=== PATIENT | female | born 1970 | race Caucasian/White ===

== ENCOUNTER 2024-12-09 08:21 | Outpatient (CLI) | payer OTHER, SELFPAY | END 2024-12-09 08:22 | disposition home or self-care (01) | LOC: NFLDREF 12-12 04:56 | PROVIDERS: PCP Family Medicine; Referring Provider Family Medicine; Visit Provider Physician Assistant Medical | DX: E78.5 Hyperlipidemia, unspecified (principal); E07.89 Other specified disorders of thyroid; Z11.3 Encounter for screening for infections with a predominantly sexual mode of transmission; Z11.59 Encounter for screening for other viral diseases | CPT/HCPCS: 80053; 80061; 84443; 86703; 86803 ==

== ENCOUNTER 2024-12-16 16:53 | Outpatient (CLI) | payer OTHER, SELFPAY ==
[2024-12-16 23:49] LABS: Chlamydia DNA Amplified* NOT DETECTED (No Detected); GC DNA Amplified* NOT DETECTED (No Detected)
[2024-12-18 19:19] LABS: HPV Source Cervix; HPV, High Risk by TMA Not Detected
== END 2024-12-16 16:54 | disposition home or self-care (01) ==
PROVIDERS: PCP Physician Assistant Medical; Visit Provider Physician Assistant Medical
DX: Z11.3 Encounter for screening for infections with a predominantly sexual mode of transmission (principal); Z11.51 Encounter for screening for human papillomavirus (HPV); Z12.4 Encounter for screening for malignant neoplasm of cervix
CPT/HCPCS: 87491; 87591; 87624; 87625; 88141; 88142

== ENCOUNTER 2025-01-18 07:06 | Outpatient (CLI) | payer OTHER, SELFPAY ==
--- NOTE | 2025-01-18 07:15 | CRLHL7_ITS ---
For Patients: As a result of the Century Cures Act, medical imaging exams and procedure reports are released immediately into your electronic medical record. You may view this report before your referring provider. If you have questions, please contact your health care provider. INDICATION: other specified disorders of thyroid COMPARISON: none TECHNIQUE: Hughes scale and color Doppler images were acquired of the thyroid gland. FINDINGS: The thyroid gland demonstrates normal uniform echogenicity and has a smooth outer contour. The right lobe measures 4.1 x 1.2 x 1.5 cm and the left lobe measures 4.1 x 1.1 x 1.3 cm in size. Isthmus measures 3 millimeters. There are no suspicious masses or nodules. The color Doppler images demonstrate normal vascularity. There is no evidence of cervical lymphadenopathy or parathyroid mass. IMPRESSION: Normal thyroid ultrasound. Dictated by Devin Pardo MD @ 01/18/2025 10:16:59 AM (Electronically Signed)
== END 2025-01-18 07:07 | disposition home or self-care (01) ==
LOC: US 07:06
PROVIDERS: PCP Physician Assistant Medical; Visit Provider Physician Assistant Medical
DX: R22.0 Localized swelling, mass and lump, head (principal); E07.89 Other specified disorders of thyroid
CPT/HCPCS: 76536

== ENCOUNTER 2025-01-28 12:40 | Emergency (ER) | payer OTHER, SELFPAY ==
--- OUTSIDE RECORDS SUMMARY | 2025-01-28 12:43 | XMS_ITS | Continuity of Care Document ---
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 We reviewed the findings of her CT. Findings include RADIOGRAPHIC IMPRESSIONS: 1. 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 2. Early degenerative joint disease of the right temporomandibular joint. 3. Apical periodontitis of tooth #19. 4. 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 There were no other abnormalities noted. For complete details regarding her imaging see the radiology report in their EHR. Diagnosis and treatment options were reviewed at today's appointment. A copy of the CT review was provided to the patient. Today I had a long discussion regarding the CT findings and clinical presentation of bite changes and Grace presents in a flare with the jaw exercises. Symptoms present as left sided preauricular and masseter pain presenting as dull throbbing and occasional burning pain. My first differential is myofascial pain with referral. My second differential is neuropathic pain. I suggested she monitor for constitutional symptoms of fever, rash, intraoral vesicles etc for possible shingles considering this is a prodrome presentation. We discussed medication options including trial of muscle relaxant. Today a prescription for cyclobenzaprine 5 mg qhs, was provided to the patient. The risks and benefits associated with the prescribed medication was discussed with the patient today. Patient was asked to discontinue medication intake and return to clinic if significant side effects were noted from the medication. I also discussed options between steroid medication vs NSAIDs to reduce the acute discomfort. Due to upcoming travel and possible adverse effects, Grace would like to defer steroids. Today a prescription for Naproxen 500 mg BID, was provided to the patient. The risks and benefits associated with the prescribed medication was discussed with the patient today. Patient was asked to discontinue medication intake and return to clinic if significant side effects were noted from the medication. I suggested she monitor patterns and triggers of the pain. It may be reasonable to consider Gabapentin in follow up. I recommended continued treatment with physical therapy. Grace would like to defer this. I recommended fabrication of an intraoral appliance. No impressions were obtained today. Grace will consider this after checking insurance coverage. I suggested completion of INvisalign treatment as recommended. We discussed 2 phase treatment approach with arthritis of the TM joints. Phase 1 - stabilize the jaw joints with home care, mobilization and use of an intraoral appliance to improve and maintain joint mechanics. Phase 2 - consider occlusal rehabilitation if needed to improve bite. I answered questions on terminal supervisor prognosis and discussed the need for possible follow up imaging to establish joint changes. Grace reports understanding and will reach me if symptoms progress. I suggested that (s)he return for follow-up care in 4-6 weeks. History today was obtained from the patient. The patient has 5+ diagnoses they would like to address. Their symptoms are flared. This case is moderate complexity because of multiple diagnoses with chronic symptoms. Data reviewed included previous imaging - TMJ CT. Discussion with treatment team members after visit was necessary. Risk of complications include disease progression were discussed. Today time spent may have included a review of past records, history taking, review of diagnoses, contributing factors, treatment plan, diagnostic testing, prognosis, expectations, risks and complications of treatment/no treatment, discussions with other providers and completing documentation was 45. Not available 01/06/2025 08:05:03 Plan of Treatment Reminders Order Date Submit Date Provider Last Modified By Organization Details Last Modified Time Details Appointments None recorded. Lab None recorded. Referral None recorded. Procedures None recorded. Surgeries None recorded. Imaging None recorded. Medication Orders cyclobenzap rine 5 mg tablet 2024 025 BRANDY SHIN [id number] [employer], [address] , [place], [address], 08:11:33 naproxen 500 mg tablet 2024 025 BRANDY SHIN [id number] [employer], [address] , [place], [address], 17:59:54 diclofenac 1 % topical gel 2024 025 arun1 KIP [id number] [employer], [address] [facility] [address] [place], [address], 08:11:31 Patient TargetsNo targets recorded. Patient InstructionsNo instructions recorded. Reason for Referral None Reported. Results Created Date Observation Date Name Description Value Unit Range Abnormal Flag Note LastModifiedBy Organization Detail LastModifiedTime 01/05/2012/21/2024 CT, tempo ral bone, w/o contr ast No observ ation record ed. [address], [place], [address], 01/04/2025 12:16:56 Result Notes None recorded. 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 005599880821 30115 Active 2024 Sara Nowak DPT [address], [place], [address], [facility] 09:55:59 Hypertrop hy of muscles of masticati on 756185170 Active 2024 Sara Nowak DPT [address], [place], [address], [facility] 09:56:06 Limited opening of mandible 423165045 Active 2024 Sara Nowak DPT [address], [place], [address], [facility] 5 09:56:17 Jaw pain 083720576 Active 2024 Sara Nowak DPT [address], [place], [address], [place] [facility] 5 09:56:25 Myofascia l pain 452419257 Active 2024 Mastic[place] ry and cervical muscles DONALD RAGSDALE BDS,MS [address], [place], [address], [facility] 5 15:29:19 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 47808150 Active 2024 Left TMJ disc displacem ent without reduction with limited opening Rule out L TMJ DJD DONALD RAGSDALE BDS,MS [address], [place], [address], [facility] 5 15:29:11 Right posterior open bite 294178103 Active 2024 DONALD RAGSDALE BDS,MS [address], [place], [address], [facility] 5 15:27:39 Sleep related bruxism 576955553 Active 2024 DONALD RAGSDALE BDS,MS [address], [place], [address], [facility] 5 15:27:51 Referred otalgia of right ear 264821295250 9100 Active 2024 Light articulat ing paper contacts - likely L TMJ DJD DONALD RAGSDALE BDS,MS [address], [place], [address], [facility] 5 15:29:50 Pain of left temporoma ndibular joint 877309148252 42322 Active 2024 DONALD RAGSDALE, BRADS,MS [address], [place], [address], [facility] 5 17:22:56 Bilateral temporoma ndibular joint arthritis 328595232379 Active 2024 BRAD RAYMONDS,MS [address], [place], [address], [facility] 5 08:05:14 Problem Notes None recorded. Procedures Surgical History Date Name Laterality Status Provider Name and Address Organization Details Recorded Time 12/22/19 CT TMJ completed Winnie Knox [facility] 12/21/2024 16:19:32 12/08/19 25 33200: Therapeutic Exercise completed Sara Nowak DPT [address], [place], [address], [facility] 12/08/2024 18:20:16 12/08/19 25 02809: Neuromuscular Re-Education completed Sara Nowak DPT [address], [place], [address], [facility] 12/08/2024 18:20:18 12/08/19 25 92469: Manual Therapy completed Sara Nowak DPT [address], [place], [address], [facility] 12/08/2024 18:20:15 11/25/19 25 63783 - PT Eval Moderate Complexity completed Sara Nowak DPT [address], [place], [address], [facility] 11/24/2024 19:11:31 11/25/19 25 [address]7928: Self Care/Home Management Training completed Sara Nowak DPT [address], [place], [address], [facility] 11/25/2024 09:51:21 11/25/19 89079: Therapeutic Exercise completed Sara She, DPT [address], [place], [address], [facility] 11/25/2024 09:50:57 11/25/19 21109: Manual Therapy completed Sarasridhar Nowak, DPT [address], [place], [address], [facility] 11/25/2024 09:51:16 [place] Teeth Extraction completed Elizabeth Sands [facility] 11/24/2024 16:08:29 Imaging Results None recorded. Procedure Notes None recorded. Medical Equipment None Reported. Allergies No known drug allergies Medications Name Sig Start Date Stop Date Status Note LastModified by Organization Details LastModified Time methylpredn isolone 4 mg tablets in a dose pack TAKE 6 TABLETS ON DAY 1 DIRECTED ON PACKAGE AND DECREASE BY 1 TAB EACH DAY FOR A TOTAL OF 6 DAYS active Not Available Not Available No t Available naproxen 500 mg tablet TAKE 1 TABLET BY MOUTH TWICE A DAY WITH MEAL(S) FOR 15 DAYS, FOR JAW AND EAR PAIN.. 01/18 completed Not Available Not Available Not Available cyclobenzap rine 5 mg tablet TAKE 1 TABLET BY MOUTH EVERY DAY AT BEDTIME FOR 30 DAYS, FOR JAW PAIN. active Not Available Not Available No t Available multivitami n active Not Available Not Available Not Available diclofenac 1 % topical gel APPLY 2 GRAMS TO THE AFFECTED AREA(S) BY TOPICAL ROUTE 4 TIMES PER DAY 2024 active Not Available Not Available Not Avai lable Vitals Date Recorded Body height Heart rate Systolic blood pressure Diastolic blood pressure Provider Name and Address Organization Details Last Updated DateTime 01/05/2025 162.56 cm 74 /min 118 mm[Hg] 76 mm[Hg] Ankit Hills [facility] 01/05/2025 17:00:49 Social History Question Answer Notes LastModified by Organizat ion Details LastModified Time Tobacco Smoking Status Never Smoker Elizabeth riley [facility] 11/24/2024 16:05:17 What Is Your Level Of Alcohol Consumption? None Information not available 11/24/2024 What Is Your Level Of Caffeine Consumption? Moderate Information not available 11/24/2024 Are You Currently Employed? Yes Information not available 11/24/2024 What Type Of Diet Are You Following? REGULAR Information not available 11/24/2024 What Is The Highest Grade Or Level Of School You Have Completed Or The Highest Degree You Have Received? [id number] Information not available 11/24/2024 Who Is Your Employer? 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 5 Information not available 11/24/2024 What Is Your Relationship Status? Information not available 11/24/2024 Do You Use Any Illicit Or Recreational Drugs? No Information not available 11/24/2024 Do You Or Have You Ever Used Any Other Forms Of Tobacco Or Nicotine? No Information not available 11/24/2024 Sex: Female Functional Status Question Answer Note LastModified by Organization D etails LastModified Time What is your exercise level? None Information not available 11/24/2024 Mental Status None recorded. Family History Relationship Description Onset Age of this Age Resolved Age Notes LastModified by Organization Details LastModified Time Father Hypertensive disorder ssylvers Not available 2024 16:07:19 Father Myocardial infarction ssylvers Not available 11/24 16:07:33 Paternal Grandmother Alzheimer's disease ssylvers Not available 2024 16:08:02 Medical History Condition Response Coronary Artery Disease N Gout N Other N Chronic fatigue syndrome N Premenstrual syndrome (PMS) N Head Trauma/Injury N Irritable bowel syndrome N Thyroid Problems N Depression N COPD N Pancreatic disease N Heart Attack (MA) N Stomach Ulcers N Anxiety Disorder N Back pain N Diabetes N Bleeding Disorder N Arthritis N Sjogren's syndrome N Tuberculosis N History of radiation therapy N Cancer N Stroke N Asthma N Physical or sexual abuse N Eating disorder N Substance Abuse N Psoriasis N Back Injury N High Cholesterol N History of chemotherapy N Hepatitis N Liver Disease N Heart Disease N Headaches N Fibromyalgia N Hypertension N Osteoporosis N Kidney Disease N Gynecological HistoryNo gynecological history recorded. 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 4849584727 6186853 M26.632 Articular disc disorder of temporomandibular joint 70820183 M26.632 Hypertroph y of muscles of mastication 859127118 M62.89 Jaw pain 393975268 R68.8 4 Limited op ening of mandible 022185385 M26.52 Myofascial pain 29130533 9 M79.11 M79.12 Referred o talgia of right ear 9943168385 136273 H92.01 Right post erior open bite 344956374 M26.221 Sleep related bruxism 27 4341662 G47.63 [id number] DONALD RAGSDALE BDS,MS [place] [address] [address] 12/21/2024 15:46:48 12/21/2024 16:28:55 Right posterior open bite 147978937 M26.221 Rule out Left TMJ DJD causing posterior open bite [id number] DONALD RAGSDALE BDS,MS [place] [address] [place] [address] 01/05/2025 16:52:16 01/05/2025 18:05:26 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 Sleep related bruxism 27 9121641 G47.63 Pain of le ft temporomandibular joint 8035062727 6059270 M26.622 Bilateral temporomandibular joint arthritis 6510371690 6204778 M26.643 Advanced DJD on left side, Early DJD on right side Health Concerns Section Related Observation LastModified by Organization Detai ls LastModified Time None Recorded Concern Status LastModified by Organization Details LastModified Time None Recorded Payers Encounter Date Sequence Insurance Name Policy Number Policy Hoffman Covered Member ID Hoffman Member ID Guarantor Name 01/05/2025 1 [facility] [id number] Grace Bergeron [id number] Grace Luis Elyssa Notes Date Note Type Note Provider Name and Address Organization Details Recorded Time 01/05/2025 text/html general HPI for jaw, face, TMD painReported bypatient.Onset:star roro 2-3 year(s) ago; gradual Location:left; preauricular; ear Quality:dull; aching Severity:pain level 3-4/10; radiating to the ear Durationconstant Symptom triggers:clenching; bruxism; stress Aggravating Factors:grinding teeth; clenching the teeth Alleviating Factors:physical therapy Associated Symptoms:jaw clicking left;jaw popping left Prior Tests:panorex (2022) 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 They report jaw symptoms which are {{improved stable ch ronic chronic and progressive worsened * unchanged flared r esolved}} since the previous visit. Symptoms and pertinent information along with prior data was reviewed, updated and documented in the patient history of present illness. Patient rates the pain intensity as {{0 1 2 3 4 5 6* 7 8 9 10}} on a scale of 0 to 10. Patient is {{engaged in* not engaged in partially engaged in completed discont inued}} active treatment at this time. Grace is present to review her CT scan report. She states she is having more jaw pain, ear pain and tooth pain. She has been having left side swelling in the last 2 days. She is currently taking 600mg Ibuprophen 3x daily from Urgent care, also had some xrays done with unremarkable findings.She will check in with Dr. Newman after CT review Recent flare started last week after the PT stretches recommended. She reports she has been using a hot pack. She discontinued the exercises. She reports ice is better in the last few days. She was seen at Urgent care.She is currently taking Ibuprofen 600 mg t.i.d. Pain presents as teeth pain in the left mandibular and maxillary teeth. She also reports left preauricular and masseter pain described as dull achy constant tightnessof 4-5/10 intensity. She denies limitation in range of pain with function. She believes bite is unchanged with heavy left sided contacts. Ear pain on the left side. he denies neurological symptoms like numbness or tingling, taste or smell changes, difficulty with speech or swallowing, vision changes, fever, functional limitation, throat pain, dry mouth, intraoral lesions, rashes. She denies previous shingles rash. Bite changes - she reports awareness of right sided posterior open bite for about a year. She reports bite causes functional limitation.Ear pain - Left sided pressure and pain on ear. She attributes this to jaw discomfort. DONALD RAGSDALE BDS,MS [address], [place], [address], [facility] 01/06/2025 08:11:34 OBGyn Episode No OBEpisode recorded.
--- OUTSIDE RECORDS SUMMARY | 2025-01-28 12:43 | XMS_ITS | Data Portability ---
Author Organization [place] - [facility], [facility] Address [address] [address] Care Team Providers Care Lamp Cleaner Name Role Phone CHRIS RYAN Referring Provider NICOLE ALDRIDGE Primary Care Provider Assessment Encounter Date Assessment Date Assessment LastModified by Organization Details LastModified Time 11/24/2024 11/24/2024 Today I spent a considerable amount of time discussing the patients past medical and personal history, as well as performing a physical examination all of which is documented in it's entirety in the electronic health record. I reviewed the pathophysiology of the disorder, potential contributing and risk factors as well as treatment options to address their complaints. I recommended advanced imaging with CT. Today no imaging was obtained. I recommended obtaining a TMJ CT to identify changes including degenerative joint changes contributing to the bite changes. A prior authorization will be initiated and referral sent to [facility]. Grace is a pleasant 54 year old presenting with left sided jaw and ear pain, progressive bite changes presenting as right posterior open bite. Symptoms are chronic and present with an acute exacerbation, consistent with left sided degenerative changes likely causing right posterior open bite. I discussed that orthodontic treatment may not contribute to or improve the occlusal discrepancy likely caused by TM joint changes. I discussed that orthodontic treatment can be completed independent of the TMD management. Grace reports understanding. From a treatment perspective I recommended a self management treatment approach. Treatment begins with home self management designed to rest the muscles of mastication and reduce inflammation in the temporomandibular joints. This includes heat and ice compresses, eating a soft food or pain-free diet, bilateral chewing identifying and decreasing daytime muscle tension and modification of their sleep position. Today I taught simple jaw exercises designed to improve the jaw mechanics and movement, improve range of mouth opening and improve TM joint fluid circulation to facilitate healing. This includes jaw rotation, simple stretch and relaxed breathing. This was both demonstrated and given in written format. Concurrently I taught proper posture. Beyond self management I believe that they would benefit from a mandibular intraoral appliance. No impressions were obtained today. I suggested we consider this in follow up after completion of orthodontic treatment. In addition I've recommended rehabilitation with physical therapy. A referral was provided today. I discussed treatment of musculoskeletal pain can encompass multiple avenues including medications, injection techniques etc. We mutually agreed to initiate treatment options to increase mind-body awareness, addressing daytime triggers and establish stress management strategies. I discussed interplay of chronic muscle tension, poor sleep and stress. I suggested supplementation with Magnesium glycinate at bedtime. The goal of treatment is to restore function and reduce pain. I believe that by following these treatment recommendations there is a good prognosis for reduction of symptoms. History was obtained from the patient. The patient has 5+ diagnoses they would like to address. This case is moderate complexity because of multiple diagnoses with chronic symptoms. Data reviewed included: previous imaging. Discussion with pain team members after visit was necessary. Risk of complications include progressive disease/symptoms. Today time spent may have included a review of past records, history taking, review of diagnoses, contributing factors, treatment plan, diagnostic testing, prognosis, expectations, risks and complications of treatment/no treatment, discussions with other providers and completing documentation was 60 minutes. Not available 11/25/2024 15:25:13 11/25/2024 11/25/2024 Patient presents to therapy with signs and symptoms consistent with the ICD 10 diagnoses noted below. Main findings include: L jaw pain with R side open bite. Based on history, likely had progressive disc displacement with reduction and possibly compensatory hypermobility on the R. Increased stress also like an aggravating factor on top of TMD. Condition is evolving with moderate irritability and personal factors/comorbiditi es affecting the plan of care (see history section for list of factors). These findings limit the pt from participation in the following functional activities: eating chewy or thin foods due to pain and occlusal changes. Treatment plan to include reducing myalgia, increasing joint ROM, teaching self management strategies and strengthening to provide long-term symptom reduction. The patient was educated on the risks/benefits of physical therapy and the anatomy pertaining to their present condition. The physical therapy POC and goals were discussed with the patient and all present questions/concerns were addressed. Pt agrees to treatment plan. Rehabilitation potential is fair-good. Treatment to include: therapeutic exercise, manual therapy, neuro muscular re education, therapeutic activities, self care, possible dry needling and modalities as needed. Frequency: will be 2>3/month for 6-8 weeks, tapering as able for a total of 6 visits over 3 months. [email or web address] Not available 11/25/2024 09:55:41 12/08/2024 12/08/2024 Grace has not noted much change in her symptoms yet. I encouraged her to work more on the masseter releases and we started controlled rotation today vs L joint mobs. Pt does have a small nodule in L cheek that is non tender and was not noted at our last session. I will ask Dr. Ragsdale to assess at their next followup in December. [email or web address] Not available 12/08/2024 18:19:59 12/21/2024 12/21/2024 CT Scan taken today. Cost of care was reviewed at today's visit. Patient did not see rendering physician today. [email or web address] Not available 12/21/2024 16:20:51 01/05/2025 01/05/2025 Today I reviewed the pathophysiology [...] to improve bite. I answered questions on group home prognosis and discussed the need for possible [...] Appointments None recorded. Lab None recorded. Referral physical therapist referral 2024 025 [facility] Sara Noawk PT, [address], [address], [place], [address], 15:30:27 behavioral health referral [email or web address] [place] [address], [address] [facility], [address], [place], [address], 15:30:27 Procedures None recorded. Surgeries None recorded. Imaging CT, temporal bone, w/o contrast 2024 025 [facility], [address] [facility] [address], [place], [address], 12:10:02 Medication Orders cyclobenzap rine 5 mg tablet 2024 025 [place] [facility] [address] [employer], [facility], [address], 08:11:33 naproxen 500 mg tablet 2024 025 [place] [facility] [address] [employer], [facility] [address] [place], [address], 17:59:54 diclofenac 1 % topical gel 2024 025 [place] [address] [facility] [address] [employer], [address] [facility] [address] [place], [address], 08:11:31 Patient Targets Encounter Date Encounter Id Patient Goals Patient Target Last Modified By Organization Details Last Modified Time 11/25/2024 [id number] terminal clerk goal of Functional Mechanics- TMJ 10% improvement in JFLS to indicate significant functional change in all measures Not available Not available Not available terminal clerk goal of Functional Mechanics- TMJ eating normal diet with minimal modifications Not available Not available Not available intermediate goal of Functional Mechanics- TMJ at least 40mm of MARIEL to allow yawning, chewing and dental care without limitation Not available Not available Not available Patient Instructions Encounter Date Encounter Id Patient Instructions Last Modified By Organization Details Last Modified Time 11/24/2024 [id number] Self Care for TMD Not availab le 11/25/2024 15:30:27 oral appliance preparation* Not available 11/25/2024 15:30:27 Three Jaw Exercises Not available 11/25/2024 15:30:27 11/25/2024 [id number] Total treatment time minutes today = 57 Next Visit Plan: insight timer resource if open to it. Recheck L joint mobility and muscle tenderness. Add CR. Medbridge Code:[email or web address] Patient/Therapist Goals: normalize bite and decrease L jaw pain. Progress Note Date: 02/22 [email or web address] Not available 11/25/2024 09:55:44 12/08/2024 [id number] Total treatment time minutes today = 30 (time limited 2* pt arrival 15 mins late) Next Visit Plan: insight timer resource if open to it. Recheck CR - how was progression? Able to do CT? Medbridge Code:[id number] Patient/Therapist Goals: normalize bite and decrease L jaw pain. Progress Note Date: 02/22 [email or web address] Not available 12/08/2024 18:20:56 Reason for Referral Physical Therapist Referral for Articular disc disorder of temporomandibular joint Referring Physician: [facility], Encounter Date: 11/24/2024 Behavioral Health Referral f or Articular disc disorder of temporomandibular joint Evaluate and address psychophysiological affects of pain Referring Physician: [facility], Encounter Date: 11/24/2024 Results Created Date Observation Date Name Description Value Unit Range Abnormal Flag Note LastModifiedBy Organization Detail LastModifiedTime 11/25/19 25 11/25/2024 oral appli ance prepa ratio n* Type of appliance mandib ular stabil izatio n applia nce Not Available [place] [address] [facility] [address], [place], [address], 11/23/2024 14:46:40 11/23/19 25 XR, ortho panto gram No observ ation record ed. [email or web address] Not Available 11/23 12:23:28 11/23/19 25 XR, cepha logra m No observ ation record ed. Not Available 11/23 12:23:22 11/23/19 25 XR, ortho panto gram No observ ation record ed. [email or web address] Not Available 11/23 12:23:34 11/23/19 25 clini harlan photo * No observ ation record ed. [email or web address] Not Available 11/23 12:23:44 11/23/19 25 XR, cepha logra m No observ ation record ed. [email or web address] Not Available 11/23 12:23:53 01/05/20 25 12/21/2024 CT, tempo ral bone, w/o contr ast No observ ation record ed. [address], [place], [address], 01/04/2025 12:16:56 Result Notes None recorded. 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 719537981707 23471 Active 2024 Sara Nowak DPT [address], [place], [address], [facility] 09:55:59 Hypertrop hy of muscles of masticati on 344140302 Active 2024 Sara Nowak DPT [address], [place], [address], [facility] 09:56:06 Limited opening of mandible 512927541 Active 2024 Sara Nowak DPT [address], [place], [address], [facility] 5 09:56:17 Jaw pain 382879088 Active 2024 Sara Nowak DPT [address] [facility] [address], [place], [address], [facility] 5 09:56:25 Myofascia l pain 384587043 Active 2024 [place] and cervical muscles JENNIFER RAGSDALE BDS,MS [address], [place], [address], [facility] 5 15:29:19 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 14600601 Active 2024 Left TMJ disc displacem ent without reduction with limited opening Rule out L TMJ DJD JENNIFER RAGSDALE BDS,MS [address] [facility] [address], [place], [address], [facility] 5 15:29:11 Right posterior open bite 521117799 Active 2024 JENNIFER RAGSDALE BDS,MS [address], [place], [address], [facility] 5 15:27:39 Sleep related bruxism 275523647 Active 2024 JENNIFER RAGSDALE BDS,MS [address], [place], [address], [facility] 5 15:27:51 Referred otalgia of right ear 529836960338 9100 Active 2024 Light articulat ing paper contacts - likely L TMJ DJD JENNIFER RAGSDALE BDS,MS [address], [place], [address], [facility] 5 15:29:50 Pain of left temporoma ndibular joint 981032744847 86656 Active 2024 JENNIFER RAGSDALE BRADS,MS [address], [place], [address], [facility] 5 17:22:56 Bilateral temporoma ndibular joint arthritis 710812008742 Active 2024 BRAD RAYMONDS,MS [address], [place], [address], [facility] 08:05:14 Problem Notes None recorded. Procedures Surgical History Date Name Laterality Status Provider Name and Address Organization Details Recorded Time 12/22/19 CT TMJ completed Winnie Knox [facility] 12/21/2024 16:19:32 12/08/19 25 12038: Therapeutic Exercise completed Sara Nowak DPT [address], [place], [address], [facility] 12/08/2024 18:20:16 12/08/19 25 23457: Neuromuscular Re-Education completed Sara Nowak DPT [address], [place], [address], [facility] 12/08/2024 18:20:18 12/08/19 25 23109: Manual Therapy completed Sara Nowak DPT [address], [place], [address], [facility] 12/08/2024 18:20:15 11/25/19 25 99913 - PT Eval Moderate Complexity completed Sara Nowak DPT [address], [place], [address], [facility] 11/24/2024 19:11:31 11/25/19 25 80523: Self Care/Home Management Training completed Sara Nowak DPT [address], [place], [address], [facility] 11/25/2024 09:51:21 11/25/19 09012: Therapeutic Exercise completed COURTNEY MartinT [address] [facility] [address], [place], [address], [facility] 11/25/2024 09:50:57 11/25/19 76723: Manual Therapy completed COURTNEY MartinT [address] [facility] [address], [place], [address], [facility] 11/25/2024 09:51:16 [place] Teeth Extraction completed Elizabeth Sands [facility] 11/24/2024 16:08:29 Imaging Results Imaging Date Name Status LastModified by Organization Details LastModified Time 11/23/2024 XR, orthopantogram completed [email or web address] Inform ation not available 11/23/2024 12:23:28 11/23/2024 XR, cephalogram completed [email or web address] Informati on not available 11/23/2024 12:23:22 11/23/2024 XR, orthopantogram completed Inform ation not available 11/23/2024 12:23:34 11/23/2024 clinical photo* completed [email or web address] Informati on not available 11/23/2024 12:23:44 11/23/2024 XR, cephalogram completed [email or web address] Informati on not available 11/23/2024 12:23:53 12/21/2024 CT, temporal bone, w/o contrast completed [email or web address] [place] [address] [address], [place], [address], 01/04/2025 12:16:56 Procedure Notes None recorded. Medical Equipment None [...] Avai lable Vitals Date Recorded Body height Body mass index (BMI) Body weight Heart rate Systolic blood pressure Diastolic blood pressure Provider Name and Address Organization Details Last Updated DateTime 162.56 cm 25.7 kg/m2 13367.8 6 g 61 /min 155 mm[Hg] 68 mm[Hg] Elizabeth Sands [facility] 16:06:43 Date Recorded Body height Heart rate Systolic blood pressure Diastolic blood pressure Provider Name and Address Organization Details Last Updated DateTime 01/05/2025 162.56 cm 74 /min 118 mm[Hg] 76 mm[Hg] Ankit Hills [facility] 01/05/2025 17:00:49 Social History Question Answer Notes LastModified by Organizat ion Details LastModified Time Tobacco Smoking Status Never Smoker Elizabeth Sands [facility] 11/24/2024 16:05:17 [...] Or The Highest Degree You Have Received? BA24219-5 Information not available 11/24/2024 Who Is Your Employer? 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 Information not available 11/24/2024 How Many Children [...] COPD N Pancreatic disease N Heart Attack ([place]) N Stomach Ulcers N Back pain N Anxiety Disorder N Diabetes N Bleeding Disorder N Arthritis N Sjogren's syndrome N Tuberculosis N History of radiation therapy N Cancer N Stroke N Asthma N Physical or sexual abuse N Eating disorder N Substance Abuse N Psoriasis N Back Injury N High Cholesterol N History of chemotherapy N Hepatitis N Liver Disease N Heart Disease N Fibromyalgia N Headaches N Hypertension N Osteoporosis N Kidney Disease N Gynecological HistoryNo gynecological history recorded. 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 8235344921 3223259 M26.632 Articular disc disorder of temporomandibular joint 63774510 M26.632 Hypertroph y of muscles of mastication 218491338 M62.89 Jaw pain 256307502 R68.8 4 Limited op ening of mandible 851456252 M26.52 Myofascial pain 97464364 9 M79.11 M79.12 Referred o talgia of right ear 0995830460 996292 H92.01 Right post erior open bite 739501067 M26.221 Sleep related bruxism 27 4594711 G47.63 [id number] JENNIFER RAGSDALE BDS,MS [facility] [address], [place] [address] 12/21/2024 15:46:48 12/21/2024 16:28:55 Right posterior open bite 875528814 M26.221 Rule out Left TMJ DJD causing posterior open bite [id number] JENNIFER RAGSDALE BDS,MS [place] [address] [place] [address] 01/05/2025 16:52:16 01/05/2025 18:05:26 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 Health Concerns Section Related Observation LastModified by Organization Detai ls LastModified Time None Recorded Concern Status LastModified by Organization Details LastModified Time None Recorded Advance Directives Directive None Recorded Payers Encounter Date Sequence Insurance Name Policy Number Policy Hoffman Covered Member ID Hoffman Member ID Guarantor Name 11/24/2024 1 [facility] [id number] Grace Raynell [id number] Grace Luis Raynell 11/25/2024 1 [facility] [id number] Grace Raynell [id number] Grace Luis Raynell 12/08/2024 1 [facility] [id number] Grace Luis Pownell [id number] 2 Grace Luis Pownell 12/21/2024 1 [facility] [id number] Grace Luis Pownell [id number] 2 Grace Luis Pownell 01/05/2025 1 [facility] [id number] Grace Luis Raynell [id number] 2 Grace Raynell Notes Date Note Type Note Provider Name and Address Organization Details Recorded Time 11/24/2024 text/html general HPI for jaw, face, TMD painReported bypatient.Onset:starte d 2-3 year(s) ago; gradual Location:left; preauricular; ear Quality:dull; aching Severity:pain level 3-4/10; radiating to the ear Durationconstant Symptom triggers:clenching; bruxism; stress Aggravating Factors:grinding teeth; clenching the teeth Alleviating Factors:physical therapy Associated Symptoms:jaw clicking left;jaw popping left Prior Tests:panorex (2022) 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 These symptoms are {{acute chronic*}} and began with {{ no clear triggering events* significant stress and tension}}. Previous consultation include {{ none evaluation with his/her primary care provider evaluation with his/her dentist* evaluation with both his/her dentist and primary care provider}}. Symptoms are {{right sided only left sided only* bilateral}} and aggravated by {{ no clear triggers jaw use and function* clenching and grinding of their teeth stress and tension}}. The patient is {{aware* not aware}} of teeth clenching and grinding. Nayeli is referred by her electrical engineering technician, Dr. Newman. Her main concern is jaw joint noises, and jaw pain. symptoms started started. about a year ago. She reports her bite is also off on the right side. Grace reports experiencing jaw joint noises and catching episodes on the left sided many years ago. She had left sided ear symptoms, saw a physical therapist. She has noticed teeth sensitivity to hot and cold food, unremarkable dental exams and radiographs. She reports that she started Invisalign about a year ago and is close to completion. Jaw symptoms started prior to starting orthodontic care. She reports she had dental crowding and overjet correct. She denies previous injury or trauma to head, neck or face. She attributes this to a period of high stress in the last year. Bite changes - she reports awareness of right sided posterior open bite for about a year. She reports bite causes functional limitation.Ear pain - Left sided pressure and pain on ear. She attributes this to jaw discomfort.Jaw pain - Grace reports bilateral masseter tightness, low grade dull achy discomfort of intensity 2-3/10. She denies sharp pain, swelling, catching or locking episodes. She reports awareness of limitation in range of motion.Teeth pain - left sided posterior teeth infrequent pain. She denies pain disrupting from sleep.Neck tightness - noneMigraine - noneOther joint issues - noneFamily history is non contributory. Sleep - non-restorative chronic. difficulty falling asleep. 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 She reports stress was high for a period of time recently, she is addressing them. Working on finding copings strategies. No ongoing major health concerns. Feels safe in her home and work. JENNIFER RAGSDALE BDS,MS [address] [facility] [address], [place], [address], [facility] 11/25/2024 15:30:31 11/25/2024 text/html Patient presents today for PT evaluation regarding: Bite changes - posterior open on the R. L jaw pop/click. L ear pressure. Treated this a year or so ago with PT for painful limited opening on the L and then started invisalign but things still feel off.Symptoms present for: 2-3 yearsFor aggravating factors, patient reports grinding teeth and clenching the teeth.For alleviating factors, patient reports physical therapy.Current symptoms are reported at 3-01/28. Pt was previously able to complete ADLs and IADLs I without limitation or pain.Functional limitations and participation restrictions currently include:*yawning*eatin g - difficult to chew with open bite Personal factors and/or comorbidities affecting the plan of care include:*Clenching*Str ess - increased lately*Stimulant use: caffeine*Medical/Surgi harlan Hx: 3rd molars, currently about 1 year into invisalign - final stages per pt. Denies: numbness, tingling, vision changes, swallowing difficulty. Previous Treatment: PT over a year ago Patient Goals include: normalize bite and decrease L jaw pain. Patient Reported Outcome JFLS-8 (out of 80): 2/=6 Sara Nowak DPT [address] [address], [place], [address], [facility] 11/25/2024 09:56:44 12/08/2024 text/html Pt reports feeli ng about the same. Has questions about insurance denial of coverage for TMJ diagnoses. Has done joint stretch on the L but not as much muscle work on the R. Sara Nowak, DPT [address] [address], [place], [address], [facility] 12/08/2024 18:23:32 12/21/2024 text/html CT Scan taken to day. Cost of care was reviewed at today's visit. Patient did not see rendering physician today. JENNIFER RAGSDALE BDS,MS [address] [facility] [address], [place], [address], [facility] 12/21/2024 17:21:55 01/05/2025 text/html general HPI for jaw, face, TMD painReported bypatient.Onset:starte d 2-3 year(s) ago; gradual Location:left; preauricular; ear Quality:dull; aching Severity:pain level 3-4/10; radiating to the ear Durationconstant Symptom triggers:clenching; bruxism; stress Aggravating Factors:grinding teeth; clenching the teeth Alleviating Factors:physical therapy Associated Symptoms:jaw clicking left;jaw popping left Prior Tests:panorex (2022) 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 Symptoms and pertinent information along with prior data was reviewed, updated and documented in the patient history of present illness. Patient rates the pain intensity as {{0 1 2 3 4 5 6* 7 8 9 10}} on a scale of 0 to 10. Patient is {{engaged in* not engaged in partially engaged in completed discontin ued}} active treatment at this time. Grace is [...] ear. She attributes this to jaw discomfort. JENNIFER RAGSDALE, KENDRA,MS [address] [facility] [address], [place], [address], [place] [facility] 01/06/2025 08:11:34 OBGyn Episode No OBEpisode recorded.
--- OUTSIDE RECORDS SUMMARY | 2025-01-28 12:43 | XMS_ITS | Clinical Summary ---
Author Organization [facility] Address [address] [place] [id number] Care Team Providers Care Handbag Frames Inspector Name Role Phone Unavailable Primary Care Provider Unavailabl e Allergies No known active allergies Medications multivitamin (MVI) tablet Take 1 tablet by mouth once daily. 0 02/17/2016 Active Active Problems Problem Noted Date Diagnosed Date Pap smear for cervical cancer screening 11/26/19 24 Overview (11/26/2023): 10/2023 UNS/HPV negative. Plan: Pap/HPV due 10/2024. Contact dermatitis and other eczema, due to unspecified cause 01/21/2009 Immunizations Immunization Administration Dates Next Due COVID-19 vaccine (Pianpian 30mcg/0.3mL) SHANA Mo 03/10/2021,02/16/2021 Td (Age >=7 Years) 11/29/2003 Tdap 06/02/2014 Family History Medical History Relation Name Comments Heart Disease Father stent at 62 - 3 v CABG at 69 - b 1946 Other cancer Father skin Heart Disease Maternal Grandmother d 60 Hypertension Mother b 1949 Heart Disease Paternal Grandfather d [place] 6 0 Cancer Paternal Grandmother skin Other Paternal Grandmother Alzheim ers Heart Disease Paternal Uncle 2 uncles Cancer-breast No Family History Cancer-ovarian No Family History Relation Name Status Comments Father Maternal Grandmother Mother Paternal Grandfather Paternal Grandmother Paternal Uncle Social History Tobacco Use Types Packs/Day Years Used Date Smoking Tobacco: Never Smokeless Tobacco: Never Tobacco Cessation:Counseling Given: Yes Alcohol Use Standard Drinks/Week Comments No 0 (1 standard drink = 0.6 oz pur e alcohol) PHQ-2 Answer Date Recorded PHQ-2 TOTAL SCORE 0 11/12/2023 Social Connections Answer Date Recorded Do you often feel lonely or isolated from those around you? 0 11/12/2023 Financial Resource Strain Answer Date R ecorded Difficulty of Paying Living Expenses 3 11/12/2023 Difficulty of Paying Living Expenses Not on file 11/12/2023 Food Insecurity Answer Date Recorded Do you worry your food will run out before you are able to buy more? 1 11/12/2023 Transportation Needs Answer Date Record ed Does lack of transportation keep you from medica l appointments? 1 11/12/2023 Does lack of transportation keep you from work, meetings or getting things that you need? 1 11/12/2023 Housing Stability Answer Date Recorded What is your housing situation today? 1 11/12/2023 Utilities Answer Date Recorded Do you have trouble paying f or utilities (for example, heat, electricity, water, phone)? 1 11/12/2023 Comments No Sex and Gender Information Value Date Recorded Sex Assigned at Not on file Legal Sex Female 5:26 AM [employer] Gender Identity Not on file Sexual Orientation Not on file Occupation Industry Job Start Date Job End Date [employer] [employer] Not on file Not on file Not on file Obstetrics History Para Term AB IAB SAB Ectopic Multiple Livin g Live Births 6 5 5 0 1 0 1 0 0 5 Date Outcome GA Total Labor Labor/2nd/3rd Weight Sex Type Anes PTL Keira A1 A5 Name Clin Term Term Term Term Term SAB Comments x5 Last Filed Vital Signs Vital Sign Reading Time Taken Comments Blood Pressure 115/79 11/12/2023 1:39 PM [employer] Pulse 69 11/12/2023 1:39 PM [employer] Temperature 36.6 C (97.8 F) 11/06/2018 8:35 AM [employer] Respiratory Rate - - Oxygen Saturation 98% 11/12/2023 1:39 PM [employer] Inhaled Oxygen Concentration - - Weight 72.1 kg (159 lb) 11/12/2023 1:39 PM [employer] Height 161.5 cm (5' 3.6) 11/12/2023 1:39 PM [employer] Body Mass Index 27.64 11/12/2023 1:39 PM [employer] Plan of Treatment Health Maintenance Due Date Last Done Comments HIV for age 15-65 1986 Pneumococcal series for age 50+ (1 of 1 - PCV) 2021 Zoster (shingles) series for age 50+ (1 of 2) 2021 Tetanus booster 06/02/2024 06/02/2014, 11/29/2003 COVID-19 vaccine series (3 - season) 2024 03/10/2021, 02/16/2021 BMI (ht and wt on same day) for age 18+ 11/12/2024 11/12/2023, 05/03/2022, 11/06/2018, Additional history exists Depression screening for age 12+ 11/12/2024 11/12/2023, 05/03/2022, 11/06/2018, Additional history exists Pap test for age 21-65 11/12/2024 , 11/06/2018, 11/06/2018, Additional history exists Mammogram for age 45-75 11/18/2024 11/18/19 24, 05/03/2022, 11/06/2018, Additional history exists Influenza Vaccine (Season Ended) 2025 Lipids for age 45-75 11/12/2028 11/12/2023, 05/03/2022, 11/06/2018, Additional history exists Colonoscopy through age 75 08/17/203208/17, 08/17/2022, 08/17/2022 Tdap Completed 06/02/2014 Hepatitis C screening for ag e 18-79 Completed 05/03/2022 Procedures Procedure Name Priority Date/Time Associated Diagnosis Comments XR MAMMO CHRIS BILAT SCREEN Routine 11/18/2023 4:17 PM [employer] Visit for screening mammogram LIPID PANEL W REFLEX MEASURED LDL Routine 11/12/2023 2:24 PM [employer] Screening cholesterol level HPV HIGH RISK Routine 11/12/2023 2:00 PM [employer] Screening for malignant neoplasm of cervix COLONOSCOPY SCREENING Routine 08/17/2022 11:03 AM CDT Screening for colon cancer ANTI HCV Routine 05/03/2022 10:04 AM CDT Need for hepatitis C screening test from Last 3 Months or Most Recently Relevant to Health Maintenance Results * XR MAMMO CHRIS BILAT SCREEN (11/18/2023 4:17 PM [employer]) Anatomical Region Laterality Modality BREASTS, Breast Left, Breast Right Bilateral Mammography Impressions 11/19/2023 2:32 PM [employer] There is no radiographic evidence for malignancy. Recommend annual mammograms. MAMMOGRAM ASSESSMENT: ACR 1 Negative PATIENTS: You will also receive a letter with your examination results in an easy to read format. If you have questions about your results, please contact your referring provider. Narrative 11/19/2023 2:32 PM [employer] HELPER For Patients: As a result of the Cures Act, medical imaging exams and procedure reports are released immediately into your electronic medical record. You may view this report before your referring provider. If you have questions, please contact your health care provider. XR MAMMO CHRIS BILAT SCREEN [[id number]] CLINICAL HISTORY: This is an asymptomatic 53 y.o. patient. INDICATION FOR EXAM: Mammogram Screening. TECHNIQUE: CC & MLO views were obtained. This study was evaluated with the assistance of Computer-Aided Detection. Breast Tomosynthesis was used in interpretation. COMPARISON FILM: Yes 05/03/22 Mindshapes 11/06/18 Mindshapes FINDINGS: The breasts have scattered areas of fibroglandular density. There are no dominant masses, suspicious micro calcifications or areas of architectural distortion. us Trisha PLASENCIA MAMMO Final Resu lt * (ABNORMAL) LIPID PANEL W REFLEX MEASURED LDL (11/12/2023 2:24 PM [employer]) CHOLESTEROL,TOTAL 250(H) 100 - 199 mg/dL 11/12/2023 11:19 PM [employer] [facility] Comment: Cholesterol, Total Reference Ranges Desirable <200 mg/dL Borderline 200-239 mg/dL High >=240 mg/dL TRIGLYCERIDES 82 <150 mg/dL 11/12/2023 11:19 PM [employer] [facility] HDL CHOLESTEROL 79 >40 mg/dL 11:19 PM [employer] [facility] NON-HDL CHOLESTEROL 171(H) <145 mg/dl 11/12/2023 11:19 PM [employer] HEL[employer] [facility] CHOL/HDL RATIO 3.16 <4.50 11/12/2023 11:19 PM [employer] HEL[employer] [facility] LDL CHOLESTEROL 155(H) <=130 mg/dL 11/12/2023 11:19 PM [employer] HELPER [facility] VLDL CHOLESTEROL 16 <=30 mg/dL 11/12/2023 11:19 PM [employer] [facility] PROVIDER ORDERED STATUS RANDOM 11/12/2023 11:19 PM [employer] [facility] Blood BLOOD SPECIMEN / Unknown Venipuncture / Unknown 11/12/2023 2:24 PM [employer] 11/12/2023 2:25 PM [employer] Trisha PLASENCIA CHEMISTRY Final Resu lt Performing Organization Address [facility]/ZIP Co de Phone Number [facility] [address] [place] [address] * HPV HIGH RISK (11/12/2023 2:00 PM [employer] HELPER) TYPE 16 Negative Negative 11/15/2023 2:46 PM [employer] [facility] TYPE 18 Negative Negative 11/15/2023 2:46 PM [employer] HELPER [facility] OTHER HIGH RISK TYPES Negative Negative 11/15/2023 2:46 PM [employer] HELPER [facility] Other (Cervical) Non-Blood / Unknown 11/12/2023 2:00 PM [employer] HEL[employer] 11/13/2023 10:34 AM [employer] HEL[employer] Narrative [facility] - 11/15/2023 2:46 PM [employer] HELPER HPV types 16, 18, 31, 33, 35, 39, 45, 51, 52, 56, 58, 59, 66 and 68 DNA were undetectable or below the pre-set threshold. Methodology: Marianna Aminta 4800 HPV Test Trisha PLASENCIA MICROBIOLOGY Final Resu lt Performing Organization Address City/[facility]/ZIP Co de Phone Number [facility] [address] [address], [place] * COLONOSCOPY (08/17/2022 11:06 AM CDT) 08/17/2022 11:0 6 AM CDT Narrative Transcriptions Weston Mejias MD - 08/17/2022 11:52 AM CDT Patient Name: Grace Shaver Procedure Date: 08/17/2022 Gender: Female Date of : 1970 Admit Type: Outpatient Procedure: Colonoscopy Proceduralist: Weston Mejias MD , Blanca Irizarry (Nurse), Asuncion Perez (Nurse) Referring MD: Alka Catalan Indications/Pre-Op Diagnosis: Screening for colorectal malignant neoplasm, This is the patient's first colonoscopy Medications: Fentanyl 100 micrograms IV, Midazolam 2 mgIV, The level of sedation administered wasmoderate Procedure Description: The patient had risks, benefits and alternatives explained to andgave informed consent. The patient had a stable cardiopulmonary status and judged an adequate candidate for conscious sedation. The [id number] was passed through the anus and advanced to the cecum, identified by appendiceal orifice and ileocecal valve. Thecolonoscopy was performed without difficulty. The patient tolerated the procedure well. The quality of the bowel preparation was good. Anatomical landmarks were photographed. Complications: No immediate complications. Estimated Blood Loss & Specimen: Estimated blood loss: none. Specimen collected - None Findings: The perianal and digital rectal examinations were normal. The entire examined colon appeared normal on direct and retroflexion views. Impressions/Post-Op Diagnosis: - The entire examined colon is normal on direct and retroflexionviews. - No specimens collected. Recommendation: - Patient has a contact number available for emergencies. The signsand symptoms of potential delayed complications were discussed with the patient. Return to normal activities tomorrow. Written discharge instructions were provided to the patient. - Resume previous diet. - Continue present medications. - Repeat colonoscopy in 10 years for screening purposes. Moderate Sedation: A time out was performed before the procedure. Moderate (conscious) sedation was administered by the endoscopy nurse and supervised bythe endoscopist. The following parameters were monitored: oxygensaturation, heart rate, blood pressure, EKG, CO2, respiratory rate, adequacy of pulmonary ventilation and reponse to care. Please refer to the patient's medical record flowsheets and nursing notes for moderate sedation details. Total physician intraservice time was 14 minutes. Weston Mejias MD 08/17/2022 11:51:45 AM This report has been signed electronically. Note Initiated On: 08/17/2022 11:06 AM Procedure Code(s): --- Professional --- 82882, Colonoscopy, flexible; diagnostic, including collection of specimen(s) bybrushing or washing, when performed (separateprocedure) Diagnosis Code(s): --- Professional --- Z12.11, Encounter for screening formalignant neoplasm of colon CPT copyright 2020 [employer]. All rights reserved. The codes documented in this report are preliminary and upon hims coder reviewmay be revised to meet current compliance requirements. Scope In: 11:33:34 AM Scope Withdrawal Time 0 hours 7 minutes 30 seconds Scope Out: 11:45:18 AM us Weston Mejias MD PROCEDURE ORD Final Res ult * ANTI HCV (05/03/2022 10:04 AM CDT) HEPATITIS C ANTIBODY Non-React lay Non-React lay 05/03/2022 6:12 PM CDT [facility] Comment:Antibodies to HCV no t detected; does not exclude the possibility of exposure to HCV. Blood BLOOD SPECIMEN / Unknown Venipuncture / Unknown 05/03/2022 10:04 AM CDT 05/03/2022 10:04 AM CDT us Alka PLASENCIA SEND OUTS Final Resu lt [facility] [address] [place] [address], [place] from Last 3 Months or Most Recently Relevant to Health Maintenance Insurance [facility]
--- OUTSIDE RECORDS SUMMARY | 2025-01-28 12:43 | XMS_ITS | Continuity of Care Document ---
Author Organization [place] [facility] Address [address] [facility] [address] [place] [address] Care Team Providers Care Clinical Nurse Educator Name Role Phone CHRIS RYAN Referring Provider NICOLE ALDRIDGE Primary Care Provider Assessment Encounter Date Assessment Date Assessment LastModified by Organization Details LastModified Time 12/21/2024 12/21/2024 CT Scan taken today. Cost of care was reviewed at today's visit. Patient did not see rendering physician today. [email or web address] Not available 12/21/2024 16:20:51 Plan of Treatment Reminders Order Date Submit Date Provider Last Modified By Organization Details Last Modified Time Details Appointments None record ed. Lab None record ed. Referral None record ed. Procedures None record ed. Surgeries None record ed. Imaging None record ed. Medication Orders None record ed. Patient TargetsNo targets recorded. Patient InstructionsNo instructions recorded. Reason for Referral None Reported. Results Created Date Observation Date Name Description Value Unit Range Abnormal Flag Note LastModifiedBy Organization Detail LastModifiedTime 11/23/19 25 XR, ortho panto gram No observ ation record ed. [email or web address] Not Available 11/23 12:23:28 11/23/19 25 XR, cepha logra m No observ ation record ed. Not Available 11/23 12:23:22 11/23/19 25 XR, ortho panto gram No observ ation record ed. [email or web address] Not Available 11/23 12:23:34 11/23/19 25 clini harlan photo * No observ ation record ed. Not Available 11/23 12:23:44 11/23/19 XR, cepha logra m No observ ation record ed. [email or web address] Not Available 11/23 12:23:53 01/05/20 25 12/21/2024 CT, tempo ral bone, w/o contr ast No observ ation record ed. [address], [place], [address], 01/04/2025 12:16:56 Result Notes None recorded. 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, [place], [address], [facility] 5 09:56:06 Limited opening of mandible 063737679 Active 2024 Sara Nowak DPT [address], [place], [address], [facility] 5 09:56:17 Jaw pain 536641136 Active 2024 Sara Nowak, DPT [address], [place], [address], [facility] 5 09:56:25 Myofascia l pain 033572238 Active 2024 Masticato ry and cervical muscles DONALD RAGSDALE, BDS,MS [address], [place], [address], [facility] 5 15:29:19 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 79346531 Active 2024 Left TMJ disc displacem ent without reduction with limited opening Rule out L TMJ DJD DONALDCARTER RAGSDALE BDS,MS [address], [place], [address], [facility] 5 15:29:11 Right posterior open bite 816849851 Active 2024 DONALD RAGSDALE BDS,MS [address], [place], [address], [facility] 5 15:27:39 Sleep related bruxism 946586152 Active 2024 DONALD RAGSDALE BDS,MS [address], [place], [address], [facility] 5 15:27:51 Referred otalgia of right ear 306061946381 9100 Active 2024 Light articulat ing paper contacts - likely L TMJ DJD DONALDBRAD YANEZJuana,MS [address], [place], [address], [facility] 5 15:29:50 Pain of left temporoma ndibular joint 403978910489 94704 Active 2024 DONALD RAGSDALE BDS,MS [address], [place], [address], [facility] 5 17:22:56 Bilateral temporoma ndibular joint arthritis 209843049804 99231 Active 2024 DONALD RAGSDALE BDS,MS [address], [place], [address], [facility] 5 08:05:14 Problem Notes None recorded. Procedures Surgical History Date Name Laterality Status Provider Name and Address Organization Details Recorded Time 12/22/[address] TMJ completed Winnie BURNHAM - [facility] 12/21/2024 16:19:32 12/08/19 25 44365: Therapeutic Exercise completed Sara Nowak DPT [address], [place], [address], [facility] 12/08/2024 18:20:16 12/08/19 25 18030: Neuromuscular Re-Education completed Sara Nowak DPT [address], [place], [address], [facility] 12/08/2024 18:20:18 12/08/19 25 56893: Manual Therapy completed COURTNEY MartinT [address], [place], [address], [facility] 12/08/2024 18:20:15 11/25/19 25 97839 - PT Eval Moderate Complexity completed Sara Nowak DPT [address], [place], [address], [facility] 11/24/2024 19:11:31 11/25/19 25 08059: Self Care/Home Management Training completed Sara Nowak DPT [address], [place], [address], [facility] 11/25/2024 09:51:21 11/25/19 25 67630: Therapeutic Exercise completed Sara Nowak DPT [address], [place], [address], [facility] 11/25/2024 09:50:57 11/25/19 25 26415: Manual Therapy completed Sara Nowak DPT [address], [place], [address], [facility] 11/25/2024 09:51:16 Dresher Teeth Extraction completed [facility] [...] Available Not Available Not Avai lable Vitals None Recorded Social History Question Answer Notes LastModified by Organizat ion Details LastModified Time Tobacco Smoking Status Never Smoker [facility] 11/24/2024 16:05:17 [...] Or The Highest Degree You Have Received? [id number] Information not available 11/24/2024 Who Is Your Employer? 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 [id number] Sara Nowak, COURTNEYT Anupamavijustin e [address] [place] [address] 11/25/2024 08:43:17 11/25/2024 09:42:15 Articular disc disorder of left temporomandibular joint 6830415293 7208209 M26.632 Hypertroph y of muscles of mastication 151313204 M62.89 Limited op ening of mandible 913902403 M26.52 Jaw pain 135080969 R68.8 4 Myofascial pain 01910031 9 M79.11 [id number] Sara Nowak, COURTNEYT [address] [place] [address] 12/08/2024 16:14:33 12/08/2024 16:41:38 Articular disc disorder of left temporomandibular joint 0778472372 4312895 M26.632 Articular disc disorder of temporomandibular joint 34876872 M26.632 Hypertroph y of muscles of mastication 273818169 M62.89 Jaw pain 556234992 R68.8 4 Limited op ening of mandible 685829582 M26.52 Myofascial pain 98008073 9 M79.11 M79.12 Referred o talgia of right ear 2395322724 096933 H92.01 Right post erior open bite 951883707 M26.221 Sleep related bruxism 27 8143820 G47.63 [id number] DONALD RAGSDALE BDS,[place] [id number] [facility],[address] [place] [address] 12/21/2024 15:46:48 12/21/2024 16:28:55 Right posterior open bite 720338332 M26.221 Rule out Left TMJ DJD causing posterior open bite Health Concerns Section Related Observation LastModified by Organization Irene head LastModified Time None Recorded Concern Status LastModified by Organization Details LastModified Time None Recorded Payers Encounter Date Sequence Insurance Name Policy Number Policy Hoffman Covered Member ID Hoffman Member ID Guarantor Name 12/21/2024 1 [facility] [id number] Grace Bergeron [id number] Grace Bergeron Notes Date Note Type Note Provider Name and Address Organization Details Recorded Time 12/21/2024 text/html CT Scan taken today. Cost of care was reviewed at today's visit. Patient did not see rendering physician today. DONALD RAGSDALE BDS,MS [address], [place], [address], [facility] 12/21/2024 17:21:55 OBGyn Episode No OBEpisode recorded.
[2025-01-28 12:49] VITALS: BP 134/88; PULSE 90; RESP 18; TEMP 36.5; O2SAT 97; BMI 27.5
--- NOTE | 2025-01-28 13:04 | CRLHL7_ITS ---
For Patients: As a result of the Century Cures Act, medical imaging exams and procedure reports are released immediately into your electronic medical record. You may view this report before your referring provider. If you have questions, please contact your health care provider. Indication: Dentigerous infection Technique: Volumetric multidetector CT images of the orbital and facial soft tissues were obtained after the administration of low osmolar intravenous contrast. 79 cc Isovue 370 low osmolar intravenous contrast Comparison: None available. Findings: The partially visualized brain parenchyma is normal in attenuation without evidence of abnormal enhancement. The globes and extra-ocular muscles are unremarkable. There is no significant periorbital soft tissue swelling. The retrobulbar fat is unremarkable without evidence of inflammatory change or fluid collection. The paranasal sinuses are clear. The mastoid air cells are clear. The nasopharynx is unremarkable. The fossae of Rosenmuller are clear. There is demonstration of a small apical root lucency of the left posterior mandibular molar with small focal dehiscence of the adjacent alveolar cortex and a 3.5 millimeter area of rim enhancement likely representing a small abscess. Otherwise there is moderate perimandibular soft tissue swelling. There are small reactive submandibular lymph nodes. The facial osseus structures are grossly intact without acute osseus abnormality. Impression: 1. Demonstration of moderate left perimandibular soft tissue swelling with likely apical root lucency and focal alveolar cortex dehiscence left posterior mandibular molar with a small, 3.5 millimeter rim enhancing fluid collection. Please note that all CT scans at this facility use dose modulation, iterative reconstruction, and/or weight-based dosing when appropriate to reduce radiation dose to as low as reasonably achievable. Dictated by Abhinav Moser MD @ 01/28/2025 2:16:58 PM (Electronically Signed)
--- NOTE | 2025-01-28 13:11 | ED.GENADULT ---
HPI - General Adult General Date Seen: 01/28/25 Chief complaint: Dental/Oral/Mouth Injury/Pain Stated complaint: IV- infection Time Seen by Provider: 01/28/25 12:57 History of Present Illness HPI narrative: Patient is a 54-year-old who is here because of some swelling along her left lower jaw. She was at the dentist earlier and was sent here because of concerns for need for IV antibiotics. She tells me that she has had swelling there for about a month, initially had been having some problems with her jaw and so had a CT scan at the beginning of December related to that, this was before the swelling started. There was apparently a problem noted with 1 of her teeth in that area. She has not had significant pain, but the swelling did get worse over the past couple of days and it is more uncomfortable which is what prompted the dentist appointment. Dentist reported that there is a tooth that needs to be pulled, but she thought that she needed to be treated with IV antibiotics 1st. Patient denies any fevers or systemic symptoms, no difficulty breathing or swallowing. General health is good. Related Data Home Medications ?Medication ?Instructions ?Recorded ?Confirmed No Known Home Medications 12/16/24 01/04/25 Allergies Allergy/AdvReac Type Severity Reaction Status Date / Time acetaminophen AdvReac Mild sick to Verified 01/04/25 15:23 stomach propoxyphene AdvReac Mild sick to Verified 01/04/25 15:23 stomach Review of Systems Status of ROS: Reports: 10 or more systems reviewed and unremarkable except as noted in History and below [facility] Medical History Thyroid fullness (~12/16/24) ?E07.89 - Other specified disorders of thyroid (ICD-10) History of vaginal delivery Family History Mother High blood pressure Father Heart disease Skin cancer Maternal Grandmother Heart disease Paternal Grandmother Alzheimers disease Skin cancer Paternal Grandfather Heart disease Myocardial infarction Uncle Heart disease Social History Narrative: . 5 children. 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 Exercise: no routine Exam Narrative: Exam Narrative: Vital signs reviewed In general, alert, nontoxic mid age woman. Voice is normal. Head: Normocephalic, atraumatic. Eyes: Sclera clear. Pupils equal and reactive. ENT: Mucous membranes moist. Dentition intact. She has some swelling along the left lower molars, although I do not feel significant fluctuance. There is a little bit of tenderness in this area. Her airways intact, floor of the mouth is normal, oral exam is otherwise normal. There is swelling along the left lower jaw line, there is no significant erythema, minimally tender to palpation. Neck: Supple without adenopathy. No stridor. Heart: Regular rate and rhythm without murmur. Lungs: Clear. No increased work of breathing, crackles or wheezes. Abdomen: Soft, nontender to palpation. Neurologic: Alert, conversant. Speech fluent, face symmetric. Moves all extremities equally. Skin: Warm, dry well perfused. Affect: Normal. Const: Vital Signs, click to edit/add: Vital Signs - 24 hr 01/28/25 12:49 Temperature 97.7 F Pulse Rate [Pulse Oximeter] 90 Respiratory Rate 18 Blood Pressure [Ri t Upper Arm] 134/88 Pulse Oximetry 97 Course Course ED Course: She declines need for anything for pain right now, she says she took a couple of ibuprofen a couple of hours ago. I do not see anything on exam concerning for Gustavo's angina, she does appear to have likely advantage and neck abscess, although the presents for a month is little atypical. Will do CT scan to further clarify. CBC and CRP ordered as well. Labs reviewed and unremarkable. I reviewed her CT scan as well, I did not see a significant abscess, final radiology report is reviewed, noted to have perimandibular soft tissue swelling and an apical root lucency with a 3.5 mm rim enhancing fluid collection along 1 of the left posterior mandibular molars. Overall, reviewed with her that she will need treatment by a dentist to really fix this. I did give her a g of Rocephin here will send her home on Augmentin, but discussed that this will not really get better until the toothed is taking care of. Reviewed reasons to return such as severe facial swelling or pain, high fevers, etcetera, ibuprofen plus or minus Tylenol as needed for pain. I have asked her to review things with her dentist tomorrow, she currently has an appointment next Saturday. Vital Signs Vital signs: Initial Vital Signs Temperature 97.7 F 01/28/25 12:49 Temperature Source Temporal Artery Scan 01/28/25 12:49 Pulse Rate 90 01/28/25 12:49 Pulse Rhythm Regular 01/28/25 12:49 Respiratory Rate 18 01/28/25 12:49 Blood Pressure 134/88 01/28/25 12:49 Blood Pressure Mean 103 01/28/25 12:49 Blood Pressure Position Sitting 01/28/25 12:49 Pulse Oximetry 97 01/28/25 12:49 Vital Signs Temperature 97.7 F 01/28/25 12:49 Pulse Rate 90 01/28/25 12:49 Respiratory Rate 18 01/28/25 12:49 Blood Pressure 134/88 01/28/25 12:49 Pulse Oximetry 97 01/28/25 12:49 Temperature 97.7 F 01/28/25 12:49 Pulse Rate 90 01/28/25 12:49 Respiratory Rate 18 01/28/25 12:49 Blood Pressure 134/88 01/28/25 12:49 Pulse Oximetry 97 01/28/25 12:49 Medications Administered Medications: Discontinued Medications Generic Name Dose Route Start Last Admin Trade Name Freq PRN Reason Stop Dose Admin Sodium Chloride 500 mls @ 500 mls/hr 01/28/25 13:07 01/28/25 14:34 0.9 % Sodium Chloride 500 Ml IV 01/28/25 14:06 500 mls/hr .Q1H ONE Administration Ceftriaxone Sodium 1 gm/ 100 mls @ 200 mls/hr 01/28/25 14:22 01/28/25 14:35 Sodium Chloride IVPB 01/28/25 14:23 200 mls/hr ONCE ONE Administration Medical Decision Making Lab Data Lab results reviewed: Yes I reviewed the patient's lab results Labs: Lab Results 01/28/25 Range/Units 13:15 WBC 9.99 (4.50-11.00) K/uL RBC 4.82 (4.00-5.20) m/uL Hgb 14.1 (12.0-16.0) gm/dL Hct 42.3 (33.0-51.0) % MCV 88 (80-100) fL MCH 29 (26-34) pg MCHC 33 (32-36) gm/dL RDW Coeff of Merle 11.9 (11.5-15.5) % Plt Count 362 (140-440) K/uL Neut % (Auto) 51.4 (42.0-72.0) % Lymph % (Auto) 37.7 (20-44) % [place] % (Auto) 9.1 (0.0-11.0) % Eos % (Auto) 1.2 (0.0-7.0) % Baso % (Auto) 0.4 (0.0-3.0) % Neut # (Auto) 5.13 (1.7-7.0) K/uL Lymph # (Auto) 3.77 H (0.90-2.90) K/uL [place] # (Auto) 0.90 (0.00-0.90) K/UL Eos # (Auto) 0.12 (0.00-0.50) K/uL Baso # (Auto) 0.04 (0.00-0.30) K/uL Abs Immat Gran (auto) 0.02 (0.00-0.30) K/uL Imm/Tot Granulo (auto) 0.2 % C-Reactive Protein 0.5 (0.5-1.0) mg/dL Imaging Data Facial CT: Attestation: I have reviewed the pertinent imaging results. Radiologist's impression: Patient: EUSEBIA SHAVER Facility: [facility] Site . Site : 1970 Study: CT-Facial W/ ISOVUE 370-01/28/2025 1:53:38 PM Ordering Physician: Cristina Rico Final Report: Indication: Dentigerous infection Technique: Volumetric multidetector CT images of the orbital and facial soft tissues were obtained after the administration of low osmolar intravenous contrast. 79 cc Isovue 370 low osmolar intravenous contrast Comparison: None available. Findings: The partially visualized brain parenchyma is normal in attenuation without evidence of abnormal enhancement. The globes and extra-ocular muscles are unremarkable. There is no significant periorbital soft tissue swelling. The retrobulbar fat is unremarkable without evidence of inflammatory change or fluid collection. The paranasal sinuses are clear. The mastoid air cells are clear. The nasopharynx is unremarkable. The fossae of Rosenmuller are clear. There is demonstration of a small apical root lucency of the left posterior mandibular molar with small focal dehiscence of the adjacent alveolar cortex and a 3.5 millimeter area of rim enhancement likely representing a small abscess. Otherwise there is moderate perimandibular soft tissue swelling. There are small reactive submandibular lymph nodes. The facial osseus structures are grossly intact without acute osseus abnormality. Impression: 1. Demonstration of moderate left perimandibular soft tissue swelling with likely apical root lucency and focal alveolar cortex dehiscence left posterior mandibular molar with a small, 3.5 millimeter rim enhancing fluid collection. Please note that all CT scans at this facility use dose modulation, iterative reconstruction, and/or weight-based dosing when appropriate to reduce radiation dose to as low as reasonably achievable. Dictated by Abhinav Moser MD @ 01/28/2025 2:16:58 PM Discharge Plan Discharge Clinical Impression: Dental abscess Patient Disposition: Home, Self-Care Condition: Stable Instructions: Dental Abscess (ED) Additional Instructions: Take the Augmentin as prescribed. I would check in with your dentist tomorrow, just update her. At a minimum, follow-up with her next Saturday as planned. I do not expect that the swelling will improve dramatically in that time frame. It may be slightly better, but not necessarily. If needed for pain, you can take ibuprofen 400 mg plus or minus Tylenol 1000 mg 3 times daily with food. If you have significant worsening, such as severe swelling or pain, high fevers shaking chills or other worsening, return to the emergency department. Prescriptions: No Action No Known Home Medications Follow Up/Referrals: Verna Macias PA-C [Primary Care Provider] - Stand Alone Forms: [id number] Info Instructions
--- OUTSIDE RECORDS SUMMARY | 2025-01-28 13:26 | XMS_ITS | Clinical Summary ---
Author Organization [employer] Address [address] [place] [id number] Care Team Providers Care Waste Hand Name Role Phone Unavailable Primary Care Provider [...] Immunization Administration Dates Next Due COVID-19 vaccine (The [employer] 30mcg/0.3mL) SHANA Mo 03/10/2021,02/16/2021 Td (Age >=7 Years) 11/29/2003 Tdap 06/02/2014 Family History Medical History Relation Name Comments Heart Disease Father stent at 62 - 3 v CABG at 69 - b 1945 Other cancer Father skin Heart Disease Maternal Grandmother d 60 Hypertension Mother b 1949 Heart Disease Paternal Grandfather d [place] 6 0 Cancer Paternal Grandmother skin Other [...] on file Legal Sex Female 5:26 AM TEST DEVELOPMENT ENGINEER Gender Identity Not on file Sexual Orientation Not on file Occupation Industry Job Start Date Job End Date [employer] Not on file Not on file [...] Comments Blood Pressure 115/79 11/12/2023 1:39 PM TEST DEVELOPMENT ENGINEER Pulse 69 11/12/2023 1:39 PM TEST DEVELOPMENT ENGINEER Temperature 36.6 C (97.8 F) 11/06/2018 8:35 AM TEST DEVELOPMENT ENGINEER Respiratory Rate - - Oxygen Saturation 98% 11/12/2023 1:39 PM TEST DEVELOPMENT ENGINEER Inhaled Oxygen Concentration - - Weight 72.1 kg (159 lb) 11/12/2023 1:39 PM TEST DEVELOPMENT ENGINEER Height 161.5 cm (5' 3.6) 11/12/2023 1:39 PM TEST DEVELOPMENT ENGINEER Body Mass Index 27.64 11/12/2023 1:39 PM TEST DEVELOPMENT ENGINEER Plan of Treatment Health Maintenance Due Date [...] CHRIS BILAT SCREEN Routine 11/18/2023 4:17 PM TEST DEVELOPMENT ENGINEER Visit for screening mammogram LIPID PANEL W REFLEX MEASURED LDL Routine 11/12/2023 2:24 PM TEST DEVELOPMENT ENGINEER Screening cholesterol level HPV HIGH RISK Routine 11/12/2023 2:00 PM TEST DEVELOPMENT ENGINEER Screening for malignant neoplasm of cervix COLONOSCOPY SCREENING Routine 08/17/2022 11:03 AM CDT Screening for colon cancer ANTI HCV Routine 05/03/2022 10:04 AM CDT Need for hepatitis C screening test from Last 3 Months or Most Recently Relevant to Health Maintenance Results * XR MAMMO CHRIS BILAT SCREEN (11/18/2023 4:17 PM TEST DEVELOPMENT ENGINEER) Anatomical Region Laterality Modality BREASTS, Breast Left, Breast Right Bilateral Mammography Impressions 11/19/2023 2:32 PM TEST DEVELOPMENT ENGINEER There is no radiographic evidence for malignancy. Recommend annual mammograms. MAMMOGRAM ASSESSMENT: ACR 1 Negative PATIENTS: You will also receive a letter with your examination results in an easy to read format. If you have questions about your results, please contact your referring provider. Narrative 11/19/2023 2:32 PM TEST DEVELOPMENT ENGINEER For Patients: As a result of the Cures Act, medical imaging exams and procedure reports are released immediately into your electronic medical record. You may view this report before your referring provider. If you have questions, please contact your health care provider. XR MAMMO CHRIS BILAT SCREEN [[id number]] CLINICAL HISTORY: This is an asymptomatic 53 y.o. patient. INDICATION FOR EXAM: Mammogram Screening. TECHNIQUE: CC & MLO views were obtained. This study was evaluated with the assistance of Computer-Aided Detection. Breast Tomosynthesis was used in interpretation. COMPARISON FILM: Yes 05/03/22 [email or web address] 11/06/18 [email or web address] FINDINGS: The breasts have scattered areas of fibroglandular density. There are no dominant masses, suspicious micro calcifications or areas of architectural distortion. us Trisha PLASENCIA MAMMO Final Resu lt * (ABNORMAL) LIPID PANEL W REFLEX MEASURED LDL (11/12/2023 2:24 PM TEST DEVELOPMENT ENGINEER) CHOLESTEROL,TOTAL 250(H) 100 - 199 mg/dL 11/12/2023 11:19 PM TEST DEVELOPMENT ENGINEER [facility] [employer] [facility] Comment: Cholesterol, Total Reference Ranges Desirable <200 mg/dL Borderline 200-239 mg/dL High >=240 mg/dL TRIGLYCERIDES 82 <150 mg/dL 11/12/2023 11:19 PM TEST DEVELOPMENT ENGINEER [facility] HDL CHOLESTEROL 79 >40 mg/dL 11:19 PM TEST DEVELOPMENT ENGINEER [facility] NON-HDL CHOLESTEROL 171(H) <145 mg/dl 11/12/2023 11:19 PM TEST DEVELOPMENT ENGINEER [facility] CHOL/HDL RATIO 3.16 <4.50 11/12/2023 11:19 PM TEST DEVELOPMENT ENGINEER [facility] LDL CHOLESTEROL 155(H) <=130 mg/dL 11/12/2023 11:19 PM TEST DEVELOPMENT ENGINEER [facility] VLDL CHOLESTEROL 16 <=30 mg/dL 11/12/2023 11:19 PM TEST DEVELOPMENT ENGINEER [facility] PROVIDER ORDERED STATUS RANDOM 11/12/2023 11:19 PM TEST DEVELOPMENT ENGINEER [facility] Blood BLOOD SPECIMEN / Unknown Venipuncture / Unknown 11/12/2023 2:24 PM TEST DEVELOPMENT ENGINEER 11/12/2023 2:25 PM TEST DEVELOPMENT ENGINEER Trisha PLASENCIA CHEMISTRY Final Resu lt Performing Organization Address [facility]/ZIP Co de Phone Number [facility] [address] [place] [address] * HPV HIGH RISK (11/12/2023 2:00 PM TEST DEVELOPMENT ENGINEER) TYPE 16 Negative Negative 11/15/2023 2:46 PM TEST DEVELOPMENT ENGINEER [facility] TYPE 18 Negative Negative 11/15/2023 2:46 PM TEST DEVELOPMENT ENGINEER [facility] OTHER HIGH RISK TYPES Negative Negative 11/15/2023 2:46 PM TEST DEVELOPMENT ENGINEER [facility] Other (Cervical) Non-Blood / Unknown 11/12/2023 2:00 PM TEST DEVELOPMENT ENGINEER 11/13/2023 10:34 AM TEST DEVELOPMENT ENGINEER Narrative [facility] - 11/15/2023 2:46 PM TEST DEVELOPMENT ENGINEER HPV types 16, 18, 31, 33, 35, 39, 45, 51, 52, 56, 58, 59, 66 and 68 DNA were undetectable or below the pre-set threshold. Methodology: Marianna Aminta 4800 HPV Test Trisha PLASENCIA MICROBIOLOGY Final Resu lt Performing Organization Address City/[facility]/ZIP Co de Phone Number [facility] [address] [address], [place] * COLONOSCOPY (08/17/2022 11:06 AM CDT) [...] an adequate candidate for conscious sedation. The [id number] was passed through the anus and advanced [...] 11:06 AM Procedure Code(s): --- Professional --- 04209, Colonoscopy, flexible; diagnostic, including collection of specimen(s) bybrushing or washing, when performed (separateprocedure) Diagnosis Code(s): --- Professional --- Z12.11, Encounter for screening formalignant neoplasm of colon CPT copyright 2020 [employer]. All rights reserved. The codes documented in this report are preliminary and upon poultry debeaker reviewmay be revised to meet current compliance requirements. Scope In: 11:33:34 AM Scope Withdrawal Time 0 hours 7 minutes 30 seconds Scope Out: 11:45:18 AM us Weston Mejias MD PROCEDURE ORD Final Res ult * ANTI HCV (05/03/2022 10:04 AM CDT) HEPATITIS C ANTIBODY Non-React lay Non-React lay 05/03/2022 6:12 PM CDT [facility] Comment:Antibodies to HCV no t detected; does not exclude the possibility of exposure to HCV. Blood BLOOD SPECIMEN / Unknown Venipuncture / Unknown 05/03/2022 10:04 AM CDT 05/03/2022 10:04 AM CDT us Alka PLASENCIA SEND OUTS Final Resu lt [facility] [address] [place] [address], [place] from Last 3 Months or Most Recently Relevant to Health Maintenance Insurance [facility]
[2025-01-28 13:29] LABS: Basophils Absolute Auto 0.04 K/uL (0.00-0.30); Basophils Percent Auto 0.4 % (0.0-3.0); Eosinophils Absolute Auto 0.12 K/uL (0.00-0.50); Eosinophils Percent Auto 1.2 % (0.0-7.0); Hematocrit 42.3 % (33.0-51.0); Hemoglobin* 14.1 gm/dL (12.0-16.0); Immature Granulocytes Abs Auto 0.02 K/uL (0.00-0.30); Immature Granulocytes Pct Auto 0.2 %; Lymphocytes Absolute Auto 3.77 K/uL (0.90-2.90); Lymphocytes Percent Auto 37.7 % (20-44); Mean Corpuscular HGB Conc 33 gm/dL (32-36); Mean Corpuscular Hemoglobin 29 pg (26-34); Mean Corpuscular Volume 88 fL (80-100); Monocytes Percent Auto 9.1 % (0.0-11.0); Neutrophils Absolute Auto 5.13 K/uL (1.7-7.0); Neutrophils Percent Auto 51.4 % (42.0-72.0); Platelet Count* 362 K/uL (140-440); RDW Coefficient of Variation % 11.9 % (11.5-15.5); Red Blood Count 4.82 m/uL (4.00-5.20); White Blood Count* 9.99 K/uL (4.50-11.00)
[2025-01-28 13:37] LABS: Slide Review Reflex No
[2025-01-28 13:51] LABS: C Reactive Protein* 0.5 mg/dL (0.5-1.0)
[2025-01-28] MEDS: 0.9 % SODIUM CHLORIDE 500 ML 500 ML IV (14:34)
[2025-01-28] MEDS: cefTRIAXone 1 GM in 0.9 % SODIUM CHLORIDE Mini-bag 100 ML IVPB (14:35)
== END 2025-01-28 15:49 | disposition home or self-care (01) ==
PROVIDERS: Emergency Provider Emergency Medicine; PCP Physician Assistant Medical
DX: K04.7 Periapical abscess without sinus (principal)
CPT/HCPCS: 36415; 70487; 85025; 86140; 96365; 99284; 99285; J0696; J7030; Q9967